=== PATIENT | female | born 1980 | race Caucasian/White ===

== ENCOUNTER 2021-02-19 09:52 | Emergency (ER) | payer BC ==
[2021-02-19 10:05] VITALS: BP 112/72; PULSE 57; TEMP 98.8; BMI 23.3
[2021-02-19] MEDS ORDERED: DIPHTH,PERTUSS(ACELL),TET 0.5 ML DISP.SYRIN IM ONE ×2 (10:07→10:10)
[2021-02-19] MEDS ORDERED: LIDOCAINE HCL 2% (50ML VIAL) INF ONE (10:07)
[2021-02-19] MEDS ORDERED: LIDOCAINE HCL 2% (20ML MULTI-DOSE VIAL) ONE (10:10)
== END 2021-02-19 11:44 | disposition home or self-care (01) ==
LOC: FER 09:52
PROC: 3E0234Z Introduction of Serum, Toxoid and Vaccine into Muscle, Percutaneous Approach (ICD-10-PCS; principal; 2021-02-19)
PROC: 0HQGXZZ Repair Left Hand Skin, External Approach (ICD-10-PCS; 2021-02-19)
DX: S61.211A Laceration without foreign body of left index finger without damage to nail, initial encounter (principal)
CPT/HCPCS: 90715; 99284-25